=== PATIENT | female | born 1975 | race Caucasian/White ===

== ENCOUNTER 2022-11-27 10:09 | Outpatient (CLI) | payer OTHER, SELFPAY ==
--- NOTE | 2022-11-27 11:00 | NEURO_ITS ---
Impression: # Insulin dependent diabetic complains of numbness of hands. # Subtle bilateral Carpal Tunnel Syndrome. # Bilateral ulnar neuropathy across the elbows of mild degree, right more than left. # Needle/EMG exam not requested. Motor Nerve Conduction Upper Extremities Median Nerve Conduction Velocity (m/sec) Terminal Latency (msec) Response Voltage(mV) Elbow-Wrist Wrist Elbow Wrist Right 54 3.5 3 3 Left 56 3.7 1 2 Ulnar Nerve Conduction Velocity (m/sec) Terminal Latency (msec) Response Voltage(mV) Above Elbow Below Elbow Wrist Above Elbow Below Elbow Wrist Right 50 52 2.3 4 4 5 Left 49 58 2.7 4 4 5 F-Wave Latency Median (ms) Ulnar (ms) Right 28.8 29.1 Left 29.2 30.3 Sensory Nerve Conduction Upper Extremities Median Nerve Stimulation Terminal Latency (msec) Wrist/Digit Response Voltage (uV) Wrist Right 3.4/3.4 53/46 Left 3.2/3.3 73/72 Ulnar Nerve Stimulation Terminal Latency (msec) Wrist/Digit Response Voltage (uV) Wrist Right 2.3 68 Left 2.4 54 Radial Nerve Terminal Latency (msec) Response Voltage(mV) Right 2.3 24 Left 2.0 45 MTDD
== END 2022-11-27 10:10 | disposition home or self-care (01) ==
LOC: ANHNEURO 10:14
PROVIDERS: PCP Family Medicine
DX: G56.23 Lesion of ulnar nerve, bilateral upper limbs (principal); G56.03 Carpal tunnel syndrome, bilateral upper limbs
CPT/HCPCS: 95911

== ENCOUNTER 2022-12-04 14:24 | Emergency (ER) | payer OTHER, SELFPAY ==
[2022-12-04 14:26] VITALS: BP 175/82; PULSE 98; RESP 15; TEMP 36.2; O2SAT 98
--- NOTE | 2022-12-04 14:32 | PC.NURSE ---
Blood sugar 162
--- NOTE | 2022-12-04 16:06 | PC.NURSE ---
saw pt walk out of room through waiting room and out to parking lot into her car. Left property.
== END 2022-12-04 16:06 | disposition left against medical advice (07) ==
PROVIDERS: PCP Family Medicine
DX: E16.2 Hypoglycemia, unspecified (principal)
CPT/HCPCS: 99199

== ENCOUNTER 2023-02-03 14:24 | Outpatient (CLI) | payer OTHER, SELFPAY ==
[2023-02-03 15:06] LABS: Anion Gap 8 mmol/L (8-16); Blood Urea Nitrogen 12 mg/dL (7-17); Calcium 9.1 mg/dL (8.4-10.2); Carbon Dioxide 26 mmol/L (22-30); Chloride 103 mmol/L (98-107); Estimated Glomerular Filt Rate > 60; Glucose 210 mg/dL (65-110); Potassium 4.4 mmol/L (3.4-5.0); Sodium 137 mmol/L (137-145)
== END 2023-02-03 14:25 | disposition home or self-care (01) ==
LOC: ANHSURGERY 14:33
PROVIDERS: Anesthesiology; PCP Family Medicine; Visit Provider Plastic Surgery
DX: Z01.818 Encounter for other preprocedural examination (principal); E11.9 Type 2 diabetes mellitus without complications
CPT/HCPCS: 36415; 80048

== ENCOUNTER 2023-02-06 00:59 | Day surgery (SDC) | payer OTHER, SELFPAY ==
[2023-01-23 12:57] VITALS: BMI 35.4
--- NOTE | 2023-01-23 12:58 | PC.NURSE ---
Report to the Outpatient Waiting Room, entrance under the green pavilion located off [facility], at time _0600_ on date _[id number]_. Planned Procedure Time: _0730_. Time changes happen often and if your time is changed the preop area will call you the afternoon before. - You and your visitor will be asked to self-screen and do not enter if you have any COVID symptoms. - Only one visitor is requested with a max of two and NO children visitors are allowed at this time. - The patient visitor may be requested to leave or wait in car when not with patient due to distancing restrictions. - A mask is optional within the hospital at this time. Patients may have clear liquids (water, carbonated beverages, clear teas, apple juice) until 3 hours prior to surgery with a maximum of 20 ounces. - No food from midnight until time of surgery Take the following medications with a SIP of water the morning of surgery: __Adderol and Lyrica DO NOT STOP ANY OF YOUR OTHER PRESCRIPTION MEDICATIONS PRIOR TO SURGERY ?EXCEPT THE FOLLOWING Medications to discontinue per physician ___None No insulin morning of surgery. Date to take last dose Please no make-up, nail maltese, hairspray, perfume, deodorant, or body powder the day of surgery. No jewelry (including any body piercings) or valuables the day of surgery, leave them at home. Please take a shower or bath the night before, or the morning of, surgery with an antibacterial soap. Wear comfortable, loose fitting clothing. - Jewelry must be removed prior to entering the operating room. Rings and piercings that are not removed may be cut off. - The hospital will not accept responsibility for valuables. - Please leave all valuables, including medications, at home the day of surgery. If you are going home after surgery, a licensed corrugated fastener driver must drive you home. - NO public transportation without another adult if you receive anesthesia. - We recommend that an adult stay with you for 24 hours following discharge. - We also recommend that you do not drive, make important decision, drink alcoholic beverages, or take any drugs that were not prescribed by your health care provider for at least 24 hours after your discharge time. Follow any additional instructions given to you from your surgeon. If you or anyone in your household have experienced Covid symptoms in the past week, please notify your surgeon or the nurse liaison at the phone number below for possible testing. Telephone instructions given to __Patient___and asked if any additional questions and then verbalized understanding. Patient advised to call surgeon office or pre surgery nurse liaison [phone] if any additional questions.
--- NOTE | 2023-02-06 06:42 | WPDANESEPPF ---
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 Patient Data Age: 47 Gender: F Height: 1.75 m Weight: 109 kg Allergies Allergy/AdvReac Type Severity Reaction Status Date / Time Penicillins Allergy Severe Stopped Verified 01/23/23 12:42 Breathing cefaclor Allergy Unknown Other Verified 01/23/23 12:42 Home Medications Medication Instructions Recorded Confirmed Type cetirizine 10 mg tablet 10 mg PO HS 01/23/23 01/23/23 History dextroamphetamine-amphetamine ER 20 mg PO DAILY 01/23/23 01/23/23 History 20 mg 24hr capsule,extend release dextroamphetamine-amphetamine ER 30 mg PO DAILY 01/23/23 01/23/23 History 30 mg 24hr capsule,extend release duloxetine 30 mg capsule,delayed 30 mg PO HS 01/23/23 01/23/23 History release duloxetine 60 mg capsule,delayed 60 mg PO HS 01/23/23 01/23/23 History release empagliflozin 10 mg tablet 10 mg PO DAILY 01/23/23 01/23/23 History (Jardiance) ergocalciferol (vitamin D2) 1,250 1,250 mcg PO WEEKLY 01/23/23 01/23/23 History mcg (50,000 unit) capsule insulin glargine 100 unit/mL (3 60 unit subcut BID 01/23/23 01/23/23 History mL) subcutaneous pen (Lantus Solostar U-100 Insulin) insulin lispro 100 unit/mL 50 unit subcut AC 01/23/23 01/23/23 History subcutaneous pen (Humalog KwikPen (U-100) Insulin) metformin 1,000 mg tablet 1,000 mg PO BID 01/23/23 01/23/23 History pregabalin 225 mg capsule 225 mg PO DAILY 01/23/23 01/23/23 History rosuvastatin 20 mg tablet 20 mg PO HS 01/23/23 01/23/23 History semaglutide 1 mg/dose (4 mg/3 mL) 2 mg subcut WEEKLY 01/23/23 01/23/23 History subcutaneous pen injector (Ozempic) Patient hx anesthesia problems: none Family hx anesthesia problems: none Results Review: All pre-operative results and documents have been reviewed as part of the pre-operative evaluation. [facility] Past Medical History Medical History (Updated 02/06/23 @ 06:42 by Claudio Salas MD) Diabetes Obesity Surgical History Surgical History (Updated 02/06/23 @ 06:43 by Claudio Salas MD) History of section Social History Social History Years smoked: 20 Smoking status: Former smoker Tobacco type: cigarettes Smoking end date: 01/17/23 Substance use: current Substance use type: marijuana Living arrangements: with family Spiritual care concerns: No Anes - Eval Final PreProcedure Day of Procedure 02/06/23 06:42 Patient weight: obese Heart: regular rate and rhythm Lungs: clear to auscultation Airway: Mallampati scale class II Neurological: alert and oriented Last oral intake: >/= 8 hours ASA classification: III Emergent: no Anesthetic plan: proceed Anesthesia type and monitoring: general GIVS and standard monitoring Results Review: All pre-operative results and documents have been reviewed as part of the pre-operative evaluation. Informed Consent: The patient's anesthetic plan and its attendant risks and benefits were discussed with the patient/family/POA. Questions were solicited and answers provided to the satisfaction of the patient/family/POA.
[2023-02-06 06:58] LABS: Glucose Point of Care 176 mg/dl (65-105)
[2023-02-06 07:00] VITALS: BP 117/64; PULSE 78; RESP 14; TEMP 36.3; O2SAT 96
[2023-02-06] MEDS: LACTATED RINGERS 1,000 ML 30 ML IV CONT ×2 (07:04→08:34)
--- NOTE | 2023-02-06 07:11 | WPDHPUPDATE1 ---
History and Physical Update Update Date/Time: 02/06/23 07:11 History and Physical has been reviewed, including an updated exam of the patient. There are NO changes in the patient's condition. Risks, benefits, and alternatives have been discussed and questions answered. Patient agrees to proceed with procedure.
[2023-02-06] MEDS: LIDO 1%/EPINEPHRINE 1:100,000 50 ML VIAL 30 ML INFILTRATE (07:45)
[2023-02-06] MEDS: BACITRACIN OINTMENT 15 GM TUBE 1 APPLIC TOPICAL (08:25)
[2023-02-06 08:34] VITALS: BP 133/76; PULSE 86; RESP 12; O2SAT 92
[2023-02-06 08:41] LABS: Glucose Point of Care 130 mg/dl (65-105)
--- NOTE | 2023-02-06 08:48 | P.OP_ITS ---
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 She was taken to the operating room where she was placed supine on the operating table. She was given IV sedation. The right upper extremity was prepped and draped in usual fashion. A time-out was held and confirmed. The 2 sites were marked once again for the incisions. Each was infiltrated with 1% lidocaine with epinephrine. The extremity was exsanguinated with the Otto wrap and tourniquet inflated to 250 mmHg. The incision in the palm was done 1st. This was incised with a 15. Blade as marked. Blunt dissection revealed the palmar aponeurosis. This was opened with scissors exposing the flexor retinaculum. This was incised with a 15. Blade opening the canal. Under direct vision with 3 point retraction the ligament was divided with a 15 blade distally and with blade and scissors proximally for complete release. There was no unusual anatomy noted. The skin was closed with interrupted 5 0 nylon suture several sites. Attention was turned to the elbow were the elbow was flexed and supported on folded towels. The incision was made as marked and dissection was carried bluntly through the subcutaneous tissue to the interspace between muscle and medial epicondyle. The nerve was tracked proximally until a finger could be passed alongside without problem. A few bleeding points were electrocoagulated. The nerve was then tracked distally exposing it from under Mckeon's ligament and the flexor retinaculum to the flexor carpi ulnaris. Once again a finger could be passed alongside the nerve without constriction. The nerve did not sublux. It appeared the primary area of concern was compression under Mckeon ligament. The skin was closed with intradermal 3-0 Monocryl sutures at multiple sites. The 2 sites were dressed with Xeroform gauze Kerlix roll and Otto bandage. The patient is being discharged with prescription for hydrocodone/325 7. Estimated Blood Loss 3 Drains No Packing No Pathology None sent Complications No immediate complications Condition Stable Disposition Same day
[2023-02-06 09:00] VITALS: BP 123/70; PULSE 71; RESP 12
[2023-02-06] MEDS: oxyCODONE HCL (*CRX) 5 MG TAB IR PO (09:01)
[2023-02-06] MEDS: fentaNYL CITRATE INJ (*CRX) 100 MCG/2 ML VIAL 25 MCG IV PUSH (09:27)
[2023-02-06 09:30] VITALS: BP 132/68; PULSE 76; RESP 20
[2023-02-06 09:55] VITALS: BP 129/59; PULSE 71; RESP 20
== END 2023-02-06 10:06 | disposition home or self-care (01) ==
PROVIDERS: PCP Family Medicine; Visit Provider Plastic Surgery
PROC: (CPT 64721; principal; 2023-02-06 07:30)
DX: G56.01 Carpal tunnel syndrome, right upper limb (principal); G56.21 Lesion of ulnar nerve, right upper limb; E11.9 Type 2 diabetes mellitus without complications; Z79.84 Long term (current) use of oral hypoglycemic drugs; Z79.4 Long term (current) use of insulin; Z79.899 Other long term (current) drug therapy; E66.9 Obesity, unspecified; Z68.36 Body mass index [BMI] 36.0-36.9, adult; Z87.891 Personal history of nicotine dependence; F12.90 Cannabis use, unspecified, uncomplicated
CPT/HCPCS: 64721; 64718; 36415; 80048; 82948; A9270; J2250; J2405; J2704; J3010; J7120

== ENCOUNTER 2023-08-04 00:29 | Day surgery (SDC) | payer OTHER, SELFPAY ==
[2023-07-22 13:04] VITALS: BMI 36.8
[2023-08-04 09:09] LABS: Glucose Point of Care 141 mg/dl (65-105)
[2023-08-04 09:10] VITALS: BP 113/64; PULSE 72; RESP 18; TEMP 36.1; O2SAT 100
[2023-08-04] MEDS: LACTATED RINGERS 1,000 ML 150 ML IV CONT (09:12)
--- NOTE | 2023-08-04 10:15 | PM.HPGS ---
History of Present Illness History of Present Illness Consent: Risks, benefits, and alternatives have been discussed and questions answered. Patient agrees to proceed with procedure. Chief complaint: neoplasm screening Narrative: Kate Cornejo is a 47 year old female here for first screening colonoscopy Review of Systems Constitutional: Constitutional: Denies headache(s) and Denies weakness Eyes: Eyes: Denies blurry vision ENT: Reports Normal hearing present, Denies headache(s) and Denies neck pain Cardiovascular: Cardiovascular: Denies chest pain and Denies dyspnea Respiratory: Respiratory: Denies dyspnea Gastrointestinal: Gastrointestinal: Reports no additional gastrointestinal complaints Genitourinary: Genitourinary: Denies dysuria Musculoskeletal: Musculoskeletal: Denies neck pain Integumentary/Breasts: Skin/Breast: Denies dry skin Neurologic: Reports Normal hearing present, Denies headache(s) and Denies weakness Psychiatric: Psychiatric: Denies anxiety Endocrine: Endocrine: Denies change in body appearance Hematologic/Lymphatic: Hematologic/Lymphatic: Denies easy bleeding Allergic/Immunologic: Allergic/Immunologic: Denies urticaria PMFSH Past Medical History Medical History (Updated 08/04/23 @ 10:15 by Forest Andino MD) Colon cancer screening Diabetes Obesity Surgical History Surgical History (Updated 02/06/23 @ 06:43 by Claudio Salas MD) History of section Social History Social History Smoking packs per day: 0.5 Smoking cigarettes per day: 10.0 Years smoked: 31 Smoking pack-years: 15.50 Smoking status: Former smoker Tobacco type: cigarettes Smoking end date: 01/17/23 Alcohol intake: never Substance use: current Substance use type: marijuana Other substance usage details: smoking and edibles daily Living arrangements: with family Spiritual care concerns: No Meds Home Medications and Allergies Home Medications Medication Instructions Recorded Confirmed Type cetirizine 10 mg tablet 10 mg PO HS 01/23/23 08/04/23 History dextroamphetamine-amphetamine ER 10 mg PO DAILY 01/23/23 08/04/23 History 20 mg 24hr capsule,extend release dextroamphetamine-amphetamine ER 30 mg PO DAILY 01/23/23 08/04/23 History 30 mg 24hr capsule,extend release duloxetine 30 mg capsule,delayed 30 mg PO HS 01/23/23 08/04/23 History release duloxetine 60 mg capsule,delayed 60 mg PO HS 01/23/23 08/04/23 History release ergocalciferol (vitamin D2) 1,250 1,250 mcg PO WEEKLY 01/23/23 08/04/23 History mcg (50,000 unit) capsule insulin glargine 100 unit/mL (3 60 unit subcut BID 01/23/23 08/04/23 History mL) subcutaneous pen (Lantus Solostar U-100 Insulin) insulin lispro 100 unit/mL 50 unit subcut AC 01/23/23 08/04/23 History subcutaneous pen (Humalog KwikPen (U-100) Insulin) metformin 1,000 mg tablet 1,000 mg PO BID 01/23/23 08/04/23 History pregabalin 225 mg capsule 225 mg PO DAILY 01/23/23 08/04/23 History rosuvastatin 20 mg tablet 20 mg PO HS 01/23/23 08/04/23 History tirzepatide 5 mg/0.5 mL 5 mg subcut WEEKLY 07/22/23 08/04/23 History subcutaneous pen injector (Mounjaro) Allergies Allergy/AdvReac Type Severity Reaction Status Date / Time Penicillins Allergy Severe Stopped Verified 08/04/23 09:08 Breathing cefaclor Allergy Unknown Other Verified 08/04/23 09:08 Vital Signs Vital Signs - 24 hr 08/04/23 09:10 Temperature 97 F L Pulse Rate 72 Respiratory Rate 18 Blood Pressure 113/64 Pulse Oximetry 100 Oxygen Delivery Room Air Exam Const: General: comfortable and no acute distress HENMT: Face/Nose/Sinus: Normal nares present Eyes: General: appearance normal, both eyes and all related structures Neck: Neck: no JVD Resp: Auscultation: clear to auscultation bilaterally Cardio: Rate: regular rate Rhythm: regular rhythm GI:
[2023-08-04 10:37] VITALS: BP 99/64; PULSE 69; RESP 22; O2SAT 99
[2023-08-04 10:47] VITALS: BP 99/54; PULSE 66; RESP 25; O2SAT 99
[2023-08-04 10:57] VITALS: BP 101/61; PULSE 65; RESP 22; O2SAT 100
== END 2023-08-04 11:00 | disposition home or self-care (01) ==
PROVIDERS: PCP Family Medicine; Visit Provider Internal Medicine Gastroenterology
PROC: 0DJD8ZZ Inspection of Lower Intestinal Tract, Via Natural or Artificial Opening Endoscopic (ICD-10-PCS; CPT 45378; principal; 2023-08-04 10:30)
DX: Z12.11 Encounter for screening for malignant neoplasm of colon (principal); K57.30 Diverticulosis of large intestine without perforation or abscess without bleeding; K64.8 Other hemorrhoids; E11.9 Type 2 diabetes mellitus without complications; Z87.891 Personal history of nicotine dependence; F12.90 Cannabis use, unspecified, uncomplicated; Z79.4 Long term (current) use of insulin; Z79.84 Long term (current) use of oral hypoglycemic drugs; Z79.85 Long-term (current) use of injectable non-insulin antidiabetic drugs
CPT/HCPCS: 45378; 82948; J2001; J2704; J7120